=== PATIENT | female | born 1945 | race Asian ===

== ENCOUNTER 2016-12-09 06:50 | Day surgery (SDC) | payer MEDICARE, OTHER ==
[2016-12-09] VITALS (19 sets, daily range): BP systolic 90–146; BP diastolic 44–70; PULSE 80–96; RESP 13–21; Ht 154.9 cm; Wt 75.0 kg
[~2016-12-09] VITALS: Ht 154.9 cm; Wt 75.0 kg
[~2016-12-09 06:50] MED LIST: AMLO2.5T78 PO; ASPI-664 PO; CRES10 PO; LOSA100T7 PO; MTF1000T PO; SITA25TA3 PO
[2016-12-09] MEDS ORDERED: CEFAZOLIN 2 GM/50 ML (PMX) 50 ML IVPB SCH (07:30)
[2016-12-09] MEDS ORDERED: PROPOFOL 20 ML ONE (07:48)
[2016-12-09] MEDS ORDERED: GLYCOPYRROLATE 0.4 MG INJ ONE (07:48)
[2016-12-09] MEDS ORDERED: ROCURONIUM 50 MG INJ ONE (07:48)
[2016-12-09] MEDS ORDERED: LIDOCAINE 2% (SDV) 5 ML INJ ONE (07:48)
[2016-12-09] MEDS ORDERED: NEOSTIGMINE 3 MG/3 ML SYRINGE ONE (07:48)
[2016-12-09] MEDS ORDERED: FENTAnyl 50 MCG/ML VIAL ONE (07:49)
[2016-12-09] MEDS ORDERED: ONDANSETRON 4 MG INJ ONE (07:49)
[2016-12-09] MEDS ORDERED: MIDAZOLAM 1 MG/ML 2 ML INJ ONE (07:49)
[2016-12-09] MEDS ORDERED: DEXAMETHASONE 4 MG/ML 1 ML INJ ONE (07:49)
[2016-12-09] MEDS ORDERED: ATROPINE 1 MG/10 ML SYRINGE IV PRN (08:00)
[2016-12-09] MEDS ORDERED: LABETALOL HCL 20MG INJ IV PRN (08:00)
[2016-12-09] MEDS ORDERED: MIDAZOLAM 1 MG/ML 2 ML INJ IV PRN (08:00)
[2016-12-09] MEDS ORDERED: hydrALAzine 20 MG INJ IV PRN ×2 (08:00→13:00)
[2016-12-09] MEDS ORDERED: HYDROmorphONE (0.2 MG/ML) 10ML SYG IV PRN ×3 (08:00)
[2016-12-09] MEDS ORDERED: DIPHENHYDRAMINE 50 MG INJ IV PRN (08:00)
[2016-12-09] MEDS ORDERED: OXYCODONE/ACETAMINOPHEN (5/325) TAB PO PRN ×2 (08:00)
[2016-12-09] MEDS ORDERED: ONDANSETRON 4 MG INJ IV PRN ×2 (08:00→11:00)
[2016-12-09] MEDS ORDERED: FENTAnyl 50 MCG/ML VIAL IV PRN ×2 (08:00)
[2016-12-09] MEDS ORDERED: MEPERIDINE 25 MG INJ IV PRN (08:00)
[2016-12-09] MEDS ORDERED: EPHEDrine SULFATE 50 MG/5 ML SYG IV PRN (08:00)
[2016-12-09] MEDS ORDERED: morphine (1 MG/ML) 10ML SYRINGE IV PRN ×3 (08:00)
[2016-12-09] MEDS ORDERED: EPHEDrine SULFATE 50 MG/5 ML SYG ONE (09:45)
[2016-12-09] MEDS ORDERED: LABETALOL HCL 20MG INJ ONE (10:19)
[2016-12-09] MEDS: D5W-0.45 NACL + KCL 20 MEQ 1,000 ML IV SCH ×2 (10:53→17:52)
[2016-12-09] MEDS ORDERED: morphine 2 MG INJ IV PRN (11:00)
[2016-12-09] MEDS ORDERED: DEXTROSE 50% 50 ML SYRINGE IV PRN ×2 (13:00)
[2016-12-09] MEDS ORDERED: GLUCAGON 1 MG INJ IM PRN (13:00)
[2016-12-09] MEDS ORDERED: GLUCOSE GEL 15 GRAM TUBE BUCCAL PRN (13:00)
[2016-12-09] MEDS ORDERED: GLUCOSE GEL 15 GRAM TUBE PO PRN ×2 (13:00)
--- NOTE | 2016-12-09 13:36 | OPR ---
DATE OF OPERATION: 12/09/2016 PREOPERATIVE DIAGNOSIS: Invasive cancer, left breast. POSTOPERATIVE DIAGNOSIS: Invasive cancer, left breast. OPERATION PERFORMED: Left modified radical mastectomy. ANESTHESIA: General. ANESTHESIOLOGIST: Dr. Waller. SURGEON: Jacky Mckee MD ICING AND GLAZE MAKER: Huan Chau MD INDICATIONS FOR PROCEDURE: The patient is a 71-year-old female with previous history of an invasive cancer of the right breast. She had previously had a right mastectomy. She underwent surveillance mammography in the left breast was found to have a spiculated suspicious lesion in the left breast at the 2 o'clock location. Subsequent core biopsy revealed a cancer. The patient was counseled as to the risks versus benefits of surgery, she stated she was not interested in breast conservation cramer rgery. She has already had a right breast removed and did not wish to have to undergo radiation gurmeet atment. She requested a left modified radical mastectomy. She consented and was scheduled for surg [facility]. DESCRIPTION OF PROCEDURE: The patient was brought to the operating theater, placed under general en dotracheal tube anesthesia. The left breast and axillary region was prepped and draped in usual cece rile fashion. Planned elliptical incision was demarcated around the nipple areolar complex includin g a significant portion of the overlying skin of the breast. The incision was carried out with 15 b lade scalpel. Subcutaneous tissue was dissected with cautery. Allis-Carlton clamps were then used to elevate the skin edges and skin flaps were created sequentially with cautery, first superiorly to t he clavicle, then medially to the sternal border, inferiorly to the inframammary fold and laterally to the latissimus dorsi muscle was identified throughout its course. Mastectomy then took place from medial to lateral at the border of the pectoralis major muscle, the pectoralis minor muscle was identified. The clavipectoral fascia was incised with blunt dissection along the chest wall. The long thoracic nerve was identified and kept out of harm's way. More supe riorly, the axillary vein and thoracodorsal neurovascular bundle was identified and kept out of harm 's way. Node bearing tissue between the long thoracic nerve and thoracodorsal nerve was meticulousl y dissected using the LigaSure device. Final connective tissue attachments to the latissimus dorsi muscle were then transected with cautery. Specimen was oriented and sent for permanent pathologic a nalysis. Dr. Mckee palpated the level 2 region of the axilla. There were some suspicious lymph nod es in this area. Therefore, some additional axillary lymph nodes were resected using cautery and se nt separately for pathologic analysis. The wound was then irrigated. Minimal bleeding was controlled with cautery. Two #10 flat Nakul-P ratt drains were then brought through the left mid axillary line, one was cut to size and laid withi n the axilla, the other was laid over the pectoralis major muscle. Both drains were secured in plac e with 2-0 nylon sutures in the standard fashion and the skin was then reapproximated with skin stap les. The patient tolerated procedure well. The estimated blood loss was 40 mL. There were no comp lications and the patient was transported in stable condition to the recovery room where circumferen tial compression dressing was applied. Dictated By: JACKY PÉREZ/ANDREI Conf#: [id number] DID#: [id number]
[2016-12-09] MEDS: LINAGLIPTIN 5 MG TABLET PO SCH (13:58)
[2016-12-09] MEDS: ACETAMINOPHEN 1000MG/100ML IV 100 ML IVPB PRN (13:58)
--- NOTE | 2016-12-09 15:46 | HP ---
DATE OF ADMISSION: 12/09/2016 HISTORY OF PRESENT ILLNESS: The patient is a 71-year-old female with history of hypertension, diabe mckinley, history of colon cancer and status post surgery in the . Patient also with history of rig ht breast cancer status post lumpectomy. The patient developed a lump in the left breast and underw ent subsequent biopsy which revealed invasive ductal carcinoma. The patient was evaluated by Dr. Heidy kc in general surgery consultation. Patient was brought to the hospital and underwent left mastect casandra. Postoperatively, the patient experienced significant pain and the patient was admitted for fur ther evaluation and management. PAST MEDICAL HISTORY: Per HPI. PAST SURGICAL HISTORY: Per HPI. ALLERGIES: NO KNOWN ALLERGIES. HOME MEDICATIONS: 1. Amlodipine. 2. Aspirin. 3. Cozaar 4. Metformin. 5. Crestor. 6. Januvia. REVIEW OF SYSTEMS: A 12-point review of systems is negative unless what mentioned in the HPI. PHYSICAL ASSESSMENT: GENERAL: Well-developed, well-nourished female currently is awake, alert. VITAL SIGNS: Temperature is 97.7, pulse is 82, blood pressure is 119/52, respiratory rate 15, oxyge n saturation 100% on 2 liters nasal cannula. HEENT: Head is atraumatic, normocephalic. Pupils equal, round, reactive to light and accommodation . Oral mucosa is pink and moist. NECK: Supple, no cervical lymphadenopathy, no thyromegaly. HEENT: Head is atraumatic, normocephalic. Pupils equal, round, reactive to light and accommodation . Oral mucosa is pink and moist. NECK: Supple. No cervical lymphadenopathy, no thyromegaly. CHEST: Clear bilaterally. There is no rhonchi, wheezes, rales noted, status post surgery with a dr y, clean and intact dressing and axillary JEMIMA with serosanguineous drainage. CARDIOVASCULAR: Normal S1, S2. No murmurs, gallops, clicks, rubs noted. ABDOMEN: Round, soft, nondistended, nontender. Bowel sounds present. There is no guarding, no giovani ound tenderness. EXTREMITIES: There is no edema, clubbing, cyanosis. Pulses equal bilaterally 2+. SKIN: There is no rash, petechiae noted. NEUROLOGIC: Patient is awake, alert and oriented x3. ASSESSMENT AND PLAN: 1. Invasive cancer of the left breast status post left radical mastectomy. I am going to continue morphine and Tylenol p.r.n. for pain, Zofran p.r.n. for nausea. Continue IV fluids. Incentive spir ometer q.1h. while patient is awake. 2. Diabetes mellitus. We will resume patient's home medications. Continue Accu-Chek q.a.c. and at bedtime with NovoLog coverage per mild sliding scale. 3. Hypertension. Continue to monitor patient's blood pressure, continue hydralazine p.r.n. for sys tolic blood pressure above 170s. We will resume patient home antihypertensives, Norvasc and Cozaar. Advance diet as patient tolerates. We will check CBC and BMP tomorrow. 4. Sequential compression device for deep venous thrombosis prophylaxis. Further recommendations b ased on clinical course. Plan of care discussed with Dr. Pappas. Dictated By: CLAU DIEHL VICE PRESIDENT DIVERSITY for GENA PAPPAS MD SR/NTS Conf#: [id number] DID#: [id number]
[2016-12-09] MEDS: metFORMIN 500 MG TAB PO SCH (17:53)
[2016-12-09] MEDS: INSULIN ASPART [NOVOLOG] 3 ML PEN SC SCH ×2 (17:54→20:22)
--- NOTE | 2016-12-09 20:23 | RADRPT ---
Vent Rate: 83 bpm RR Interval: 0 msec CO Interval: 160 msec QRS Duration: 102 msec QT Interval: 402 msec QTC Interval: 472 msec P-R-T [place]: 53 - 43 - 49 degrees Normal sinus rhythm Incomplete right bundle branch block Borderline ECG Electronically Signed By: Cal Chung [id number]
[2016-12-09] MEDS ORDERED: ATORVASTATIN 40 MG TAB PO SCH (21:00)
[2016-12-10] MEDS: ACETAMINOPHEN 1000MG/100ML IV 100 ML IVPB PRN ×2 (01:32→14:39)
[2016-12-10] MEDS: D5W-0.45 NACL + KCL 20 MEQ 1,000 ML IV SCH (03:24)
[2016-12-10 04:00] VITALS: BP 111/56; PULSE 94; RESP 16
[2016-12-10 06:01] LABS: ADD SCAN DIFF NO
[2016-12-10 06:07] LABS: HEMATOCRIT 33.5 % (37.0-47.0); HEMOGLOBIN 10.6 g/dl (12.0-16.0); LYMPHOCYTES # 1.2 10^3/ul (0.8-2.9); LYMPHOCYTES % 12.8 % (15.0-51.0); MEAN CORPUSCULAR HEMOGLOBIN 29.2 pg (29.0-33.0); MEAN CORPUSCULAR HGB CONC 31.6 g/dl (32.0-37.0); MEAN CORPUSCULAR VOLUME 92.3 fl (82.0-101.0); MEAN PLATELET VOLUME 10.4 fl (7.4-10.4); MONOCYTE # 0.5 10^3/ul (0.3-0.9); MONOCYTES % 5.4 % (0.0-11.0); NEUTROPHIL # 7.7 10^3/ul (1.6-7.5); NEUTROPHILS % 81.4 % (39.0-77.0); PLATELET COUNT 177 10^3/UL (140-415); RED BLOOD COUNT 3.63 10^6/ul (4.20-5.40); RED CELL DISTRIBUTION WIDTH 13.8 % (11.5-14.5); WHITE BLOOD COUNT 9.4 10^3/ul (4.8-10.8)
[2016-12-10 06:09] LABS: CALCIUM 8.5 mg/dl (8.4-10.2); CREATININE 1.02 mg/dl (0.44-1.00); POTASSIUM 4.6 mmol/L (3.5-5.1)
[2016-12-10 07:45] VITALS: BP 122/57; RESP 18
[2016-12-10] MEDS: metFORMIN 500 MG TAB PO SCH ×2 (08:21→17:17)
[2016-12-10] MEDS: LINAGLIPTIN 5 MG TABLET PO SCH (08:27)
[2016-12-10] MEDS: INSULIN ASPART [NOVOLOG] 3 ML PEN SC SCH ×3 (08:31→17:20)
[2016-12-10] MEDS ORDERED: ASPIRIN (EC) 81 MG TAB PO SCH (09:00)
[2016-12-10] MEDS ORDERED: AMLODIPINE 5 MG TAB PO SCH (09:00)
[2016-12-10] MEDS ORDERED: LOSARTAN 50 MG TAB PO SCH (09:00)
[2016-12-10] MEDS ORDERED: SOD CHLORIDE 0.45% 1,000 ML IV SCH (09:00)
--- NOTE | 2016-12-10 19:52 | PN ---
DATE: 12/10/2016 SUBJECTIVE: Status post left modified radical mastectomy with axillary dissection. Postoperative d ay #1. No complaint. Has tolerated diet, has walked around the floor. No nausea, no vomiting. OBJECTIVE: GENERAL: Awake, alert. VITAL SIGNS: Temperature 98.6; 93 heart rate, respirations 18, blood pressure 122/57, saturation 94 % on room air. LABORATORY DATA: Today BUN 27, creatinine 1.02, minimally elevated. Blood sugar once was 233, late r on it was 90 and 125. Hematology: WBC 9400 with 81% segmented, hemoglobin 10.6, hematocrit 33.5. DRAINS: Nakul-Galvan 2 of them; #1 has drained 10 mL per 24 hour, #2 has drained 25 mL per 24 hour s, serosanguineous. CHEST: Dressing is intact. It is not too tight. ASSESSMENT AND PLAN: Instructions given to the patient's son for draining the Nakul-Steven and me asuring that. The patient to be discharged today with pain medication and to call Dr. Mckee' office tomorrow and make an appointment for followup. Dictated By: MARIELA TORRES MD PS/NTS Conf#: [id number] DID#: [id number]
--- NOTE | 2016-12-12 06:14 | DS ---
DATE OF ADMISSION: 12/09/2016 DATE OF DISCHARGE: 12/10/2016 FINAL DIAGNOSES: 1. Invasive cancer of the left breast status post left radical mastectomy. 2. Diabetes mellitus type 2. 3. Hypertension. BRIEF HISTORY: For history, please refer to the history and physical from 12/09/2016. The patient is a 71-year-old female with hypertension, diabetes, history of colon cancer, status post surgery in . The patient is status post right breast cancer, status post right mastectomy. The patient was diagnosed with invasive cancer of the left breast and did not wish to undergo radiation treatmen t, and the patient requested left modified radical mastectomy. The patient was brought to the [facility] and underwent left modified radical mastectomy by Dr. Mckee on 12/09/2016. Postoperatively the patient experienced significant pain and admitted for further evaluation and management. HOSPITAL COURSE: The patient was given Tylenol and morphine p.r.n. for pain and Zofran p.r.n. for n ausea. The patient was continued on home antihypertensive medications including metformin and NovoL og per mild algorithm sliding scale. The patient's condition improved, and the patient's pain was w ell controlled. The patient denied any nausea and the patient was discharged home. CONDITION ON DISCHARGE: Hemodynamically stable. ACTIVITY: As patient tolerates. DIET: 1800 ADA, 2 gram sodium diet. DISCHARGE MEDICATIONS: The patient was given a prescription for [place] p.r.n. for pain. The patient is to continue on her home medications of: 1. Amlodipine. 2. Aspirin. 3. Cozaar 4. Metformin. 5. Crestor. 6. Januvia. FOLLOWUP: The patient is instructed to follow up with Dr. Mckee in postoperative appointment in 5 t o 7 days. Interdisciplinary plan of care was established for this patient. Plan of care was discussed with Dr Dariusz Pappas. Dictated By: CLAU DIEHL COMMUNICATION LECTURER for GENA PAPPAS MD SR/NTS Conf#: [id number] DID#: [id number]
== END 2016-12-10 19:15 | disposition home or self-care (01) ==
LOC: SDS 06:50 → MS1 11:45 → SDS 12-10 19:15
PROVIDERS: ATTEND Surgery Surgical Oncology
DX: D05.12 Intraductal carcinoma in situ of left breast (principal); I10 Essential (primary) hypertension; E11.9 Type 2 diabetes mellitus without complications; E66.9 Obesity, unspecified; Z68.31 Body mass index [BMI] 31.0-31.9, adult; Z85.038 Personal history of other malignant neoplasm of large intestine
CPT/HCPCS: 19307; 80048; 82962; 85025; 88307; 93005; J0131; J1100; J1815; J2250; J2405; J2710; J3010; J3480